=== PATIENT | female | born 2000 | race Caucasian/White ===

== ENCOUNTER 2018-03-24 15:00 | Outpatient (CLI) | payer BC ==
--- NOTE | 2018-03-24 15:59 | ULT ---
PELVIC ULTRASOUND WITH DOPPLER: (TRANSABDOMINAL, TRANSVAGINAL, VIRGEN SCALE, COLOR FLOW AND SPECTRAL DOPPLER) Date: 03/24/18 HISTORY: Pelvic pain. Possible endometriosis. FINDINGS: The uterus measures 7.7 x 4.8 x 5.3 cm without mass or endometrial fluid. The endometrium measures 2. 4 cm in thickness. The uterus is retroverted. The right ovary measures 4.3 x 2.4 x 2.6 cm. The left ovary measures 2.6 x 3.6 x 1.9 cm. Flow is demo nstrated to both ovaries. No adnexal masses are seen. There is a small amount of free fluid in the pe lvis. IMPRESSION: 1. Retroverted uterus. 2. Small amount of free fluid in the pelvis. 3. Endometrial thickness is 2.4 cm. POS: JER
== END 2018-03-24 15:01 | disposition home or self-care (01) ==
LOC: SCSULT 15:00
PROVIDERS: ATTEND Physician Assistant
DX: R10.2 Pelvic and perineal pain (principal); N85.4 Malposition of uterus
CPT/HCPCS: 76856

== ENCOUNTER 2019-11-24 16:32 | Emergency (ER) | payer BC, OTHER ==
[2019-11-24] MEDS ORDERED: Acetaminophen 500 MG TAB ONE (16:46)
== END 2019-11-24 17:55 | disposition home or self-care (01) ==
LOC: ERS 16:32
DX: J06.9 Acute upper respiratory infection, unspecified (principal); Z20.828 Contact with and (suspected) exposure to other viral communicable diseases; I50.9 Heart failure, unspecified; Z79.899 Other long term (current) drug therapy
CPT/HCPCS: 87635; 87804; 99283; U0002